=== PATIENT | male | born 1955 | race Caucasian/White ===

== ENCOUNTER 2021-12-25 22:07 | Inpatient (IN) | payer OTHER ==
[~2021-12-25] VITALS: Ht 172.7 cm; Wt 74.8 kg
[~2021-12-25 22:07] MED LIST: DIGOXIN; LOTENSIN; ROBAXIN; VYTORIN
[2021-12-25 22:33] VITALS: BP_SYST 186
[2021-12-26 00:37] LABS: BASOPHILS # (AUTO) 0.1 K/uL (0.0-0.2); BASOPHILS % (AUTO) 0.7 % (0.0-2.0); EOSINOPHILS # (AUTO) 0.2 K/uL (0.0-0.4); EOSINOPHILS % (AUTO) 1.9 % (0.0-4.0); HEMATOCRIT 40.3 % (36-54); HEMOGLOBIN 13.1 g/dL (14.0-18.0); LYMPHOCYTES # (AUTO) 2.5 K/uL (1.0-5.5); LYMPHOCYTES % (AUTO) 20.6 % (20.5-51.5); MEAN CORPUSCULAR HEMOGLOBIN 25 pg (27-31); MEAN CORPUSCULAR HGB CONC 33 % (32-36); MEAN CORPUSCULAR VOLUME 75 fL (79.0-98.0); MONOCYTES # (AUTO) 0.8 K/uL (0.0-1.0); MONOCYTES % (AUTO) 6.6 % (1.7-9.3); NEUTROPHILS # (AUTO) 8.5 K/uL (1.8-7.7); NEUTROPHILS % (AUTO) 70.2 % (40.0-70.0); PLATELET COUNT (AUTO) 183 K/uL (130-430); RED BLOOD CELL COUNT(AUTO) 5.36 MIL/uL (4.2-6.2); RED CELL DISTRIBUTION WIDTH 15.1 % (9.0-15.0); WHITE BLOOD COUNT (AUTO) 12.1 K/uL (4.8-10.8)
[2021-12-26 00:40] LABS: ALANINE AMINOTRANSFERASE 33 U/L (12-78); ASPARTATE AMINOTRANSFERASE 15 U/L (10-37); CALCIUM 9.3 mg/dL (8.4-11.0); CREATININE 1.23 mg/dL (0.55-1.30); GLUCOSE 142 mg/dL (70-99); LIPASE 126 U/L (73-393); TOTAL BILIRUBIN 0.1 mg/dL (0.0-1.0); UREA NITROGEN, BLOOD 22 mg/dL (8-21)
[2021-12-26 00:51] LABS: GFR AFRICAN AMERICAN 76 mL/min (>90)
[2021-12-26 01:59] LABS: ANION GAP 9 (5-15); CHLORIDE 106 mmol/L (98-107); POTASSIUM 4.2 mmol/L (3.5-5.1); SODIUM SERUM 144 mmol/L (136-145)
[2021-12-26] MEDS ORDERED: MORPHINE 4 MG INJ. 4 MG/ML VIAL IVP ONE ×3 (02:45→05:00)
[2021-12-26] MEDS ORDERED: MORPHINE 4 MG INJ. 4 MG/ML VIAL ONE (02:46)
--- NOTE | 2021-12-26 03:06 | NUR ---
Pt C/O RLQ pain Reports diarrhea @home VSS Patient resting comfortably in bed Pt AOX4 Able to make needs known Family @ bedside Will continue to monitor
[2021-12-26] MEDS ORDERED: HYDROmorphone 1 MG/ML INJ. CARTRIDGE IVP ONE ×2 (05:30→09:45)
--- NOTE | 2021-12-26 05:35 | NUR ---
Pt C/O RUQ pain after morphine x3 MD notified with order for Dilaudid 0.5mg admin Noted and carried out
[2021-12-26] MEDS ORDERED: HYDROmorphone 1 MG/ML INJ. CARTRIDGE ONE ×2 (05:36→09:40)
[2021-12-26] MEDS ORDERED: hydrALAZINE HCL 20 MG/ML VIAL IVP ONE (06:45)
[2021-12-26] MEDS ORDERED: ENALAPRILAT DIHYDRATE 1.25 MG/ML VIAL IVP ONE (06:45)
--- NOTE | 2021-12-26 07:03 | NUR ---
Patient grimacing in pain at this time MD pope Pt AOX4 VSS Able to make needs known Will continue to monitor
--- NOTE | 2021-12-26 07:14 | NUR ---
Gave report to Cheryle for continous of care
[2021-12-26] MEDS ORDERED: cefTRIAXone 1 GM IVPB PREMIX 50 ML IV ONE (07:45)
[2021-12-26] MEDS ORDERED: D5/0.45 NS 1,000 ML IV ONE (07:45)
[2021-12-26] MEDS: D5/0.45 NS 1,000 ML IV SCH ×2 (08:21→18:42)
[2021-12-26] MEDS ORDERED: EZET1TAB22 PO (08:30)
[2021-12-26] MEDS ORDERED: SIMV20TA2 PO (08:30)
[2021-12-26] MEDS ORDERED: DIGO250T PO (08:30)
[2021-12-26] MEDS ORDERED: VITD400 PO (08:30)
[2021-12-26] MEDS ORDERED: METF-518 PO (08:30)
[2021-12-26] MEDS ORDERED: BENA40TA89 PO (08:30)
[2021-12-26] MEDS ORDERED: ASPI-1393 PO (08:30)
[2021-12-26] MEDS ORDERED: METO50TA7 PO (08:30)
--- NOTE | 2021-12-26 08:35 | NUR ---
Admit bed requested Patient will be admitted to care of . Admitted to [facility] unit. Diagnosis KIDNEY STONE Inpatient (Yes or No) YES Observation (Yes or No) NO Orientation concerns or request close to nursing station (Yes or No) NO Covid Status NEG On vent or bipap NO Isolation requirements NO Needs a sitter NO From Home (Yes or if No enter name of facility) YES Requires Dialysis (Yes or No) NO Med Rec Completed (Yes of No) YES
--- NOTE | 2021-12-26 08:36 | NUR ---
66yo m with c/o RLQ pain radiating to right flank since last night. pain worsened from 4-9/10, sharp. denies vomiting, denies urinary problems. in ed, aox4. gcs15. pt hypertesive 170/86. not in distress. clear breath sounds. abdomen tender on RLQ. ermd made aware of pt status. pmh: dm, htn, arrythmia, hld
--- NOTE | 2021-12-26 09:52 | NUR ---
REPORT CALLED TO KAN JOSHI.
--- NOTE | 2021-12-26 10:15 | NUR ---
Patient will be admitted to care of DR AARON. Admitted to [facility] unit. Will go to room 113B. Belongings list completed. Complete and up to date summary report printed. SBAR report to be given at bedside with opportunity for questions.
--- NOTE | 2021-12-26 10:23 | NUR ---
CONSULTATION PAGED/CALLED Reason for Consultation: [] KIDNEY STONES Person Who was Notified: [] DAVID Consulting Physician: [] DR Brittani NICOLAS [employer] Supervisor Specialty: [] UROLOGIST Ordering Physician: [] DR AARON
--- NOTE | 2021-12-26 10:30 | NUR ---
CONSULT DR NICOLAS WAS CALLED FOR CONSULT, SPOKE WITH RUSH.
[2021-12-26 10:39] VITALS: BP_SYST 176
[2021-12-26 10:46] VITALS: BP_SYST 176
--- NOTE | 2021-12-26 11:00 | NUR ---
ADMISSION: The patient, NEHEMIAH ASKEW, 66 y/o, M admitted by CRISTIAN NUNEZ DO, was given written information regarding hospital policies, unit procedures and contact persons. CC OF RIGHT FLANK AND GROIN AREA PPAIN. DX OF HYDRONEPHROSIS. MED RECONCILIATION UPDATED. BELONGINGS CHECK AND PLACE AT THE BEDSIDE DRAWER.
[2021-12-26] MEDS: ONDANSETRON HCL 4 MG/2 ML VIAL IVP PRN ×2 (11:03→17:06)
[2021-12-26] MEDS: KETOROLAC TROMETHAMINE 30 MG VIAL IVP PRN ×2 (11:04→17:06)
[2021-12-26] MEDS ORDERED: SIMV40TA2 PO (14:31)
[2021-12-26 15:16] VITALS: BP_SYST 127
--- NOTE | 2021-12-26 17:18 | NUR ---
MD sanchez callback, new order received about the med reconciliation.
[2021-12-26] MEDS ORDERED: COMMUNICATION ORDER XX PRN (17:30)
[2021-12-26] MEDS ORDERED: LORazepam 2 MG/ML VIAL IVP PRN (18:30)
[2021-12-26] MEDS ORDERED: ONDANSETRON HCL 4 MG/2 ML VIAL IVP PRN (18:30)
[2021-12-26] MEDS ORDERED: INSULIN REGULAR, HUMAN 100 UNITS/ML, 10 ML VIAL (humuLIN R) SUBCUT PRN (18:30)
[2021-12-26] MEDS ORDERED: ACETAMINOPHEN 325 MG TABLET PO PRN ×2 (18:30)
--- NOTE | 2021-12-26 19:11 | NUR ---
endorsed care to fabian dover.
[2021-12-26 20:00] VITALS: BP_SYST 136
--- NOTE | 2021-12-26 20:00 | NUR ---
PM ASSESSMENT; -Pt is a/xo4, resting in bed comfortably. Pt denies any chest pain,sob,or any acute distress. IV site of RAC patent, no s/s any infiltration noted. IVF D5 1/2n @ 100ml/hr. Pt is self ambulatory with steady gaits w/o any difficulty noted. All safety measures in place. Call light w/in reach. Educated and instructed pt regarding safety measure, to use call light whenever needs assistance or OOB, pt verbalized understanding. Pt is able to use call light for assistance. Cont to monitor pt.
[2021-12-26] MEDS: DIGOXIN 0.25 MG TABLET PO SCH (22:00)
--- NOTE | 2021-12-26 22:00 | NUR ---
ROUNDS; -Pt awakes, resting in bed comfortably. Pt denies any pain,sob,or any acute distress. Gave all routine meds. Auscultated 1 min of apical heart rate 61 bpm. All safety measures in place. Call light w/in reach. Cont to monitor pt.
[2021-12-26] MEDS: SIMVASTATIN 40 MG TABLET PO SCH (22:01)
[2021-12-26] MEDS: lisinopriL 20 MG TABLET PO SCH (22:01)
[2021-12-26 23:17] LABS: BILIRUBIN,URINE NEGATIVE (NEGATIVE); BLOOD, URINE 3+ (NEGATIVE); COLOR,URINE YELLOW (YELLOW); GLUCOSE,URINE NEGATIVE (NEGATIVE); KETONES,URINE NEGATIVE (NEGATIVE); LEUKOCYTE ESTERASE ,URINE NEGATIVE (NEGATIVE); NITRITE, URINE NEGATIVE (NEGATIVE); PH,URINE 5.5 (5.0-8.0); PROTEIN URINE NEGATIVE (NEGATIVE); UROBILINOGEN,URINE 0.2 (0.2-1.0)
[2021-12-27 00:05] LABS: CLARITY/URINE SLIGHTLY HAZY (CLEAR)
[2021-12-27 00:15] VITALS: BP_SYST 140
[2021-12-27 00:15] LABS: BACTERIA,URINE FEW /HPF (None Seen); RBC,URINE 20-50 /HPF (0-3); WBC,URINE 0-3 /HPF (0-3)
--- NOTE | 2021-12-27 00:15 | NUR ---
ROUNDS; -Pt is asleep. No s/s any pain,sob,or any acute distress noted. All safety measures in place. Call light w/in reach. Cont to monitor pt.
[2021-12-27 00:18] LABS: MUCUS,URINE None Seen /LPF (None Seen)
--- NOTE | 2021-12-27 02:00 | NUR ---
ROUNDS; -Pt is asleep. No s/s any pain,sob,or any acute distress noted. All safety measures in place. Call light w/in reach. Cont to monitor pt.
--- NOTE | 2021-12-27 02:56 | NUR ---
CONSULTATION PAGED/CALLED Reason for Consultation: BLOOD CX G+ COCCI IN CLUSTER Person Who was Notified: JAMIE Consulting Physician: RAS Dining Service Supervisor Specialty: Ordering Physician: SHARON
--- NOTE | 2021-12-27 02:56 | NUR ---
CONSULTATION PAGED/CALLED Reason for Consultation: PYELONEPHRITIS Person Who was Notified: BECKI Consulting Physician: HASMUKH Dandy Tender Specialty: Ordering Physician: GALEN
--- NOTE | 2021-12-27 04:05 | NUR ---
ROUNDS; -Pt is asleep. No s/s any pain,sob,or any acute distress noted. All safety measures in place. Call light w/in reach. Cont to monitor pt.
[2021-12-27] MEDS: D5/0.45 NS 1,000 ML IV SCH ×4 (06:01→21:50)
--- NOTE | 2021-12-27 06:40 | NUR ---
CLOSING NOTES; -Pt is a/xo4, resting in bed comfortably. Pt denies any chest pain,sob,or any acute distress. IV site of RAC patent, no s/s any infiltration noted. IVF D5 1/2n @ 100ml/hr. All safety measures in place. Call light w/in reach. Will endorse to next nurse to cont care.
[2021-12-27 08:00] VITALS: BP_SYST 136
[2021-12-27] MEDS ORDERED: cefTRIAXone 1 GM IVPB PREMIX 50 ML IV SCH (08:00)
--- NOTE | 2021-12-27 08:00 | NUR ---
Report received from KAN Garcia for continuity of care. Patient stable condition.
[2021-12-27] MEDS ORDERED: BENAZEPRIL HCL 20 MG TABLET (LOTENSIN) PO SCH (09:00)
[2021-12-27 09:07] LABS: BASOPHILS # (AUTO) 0.1 K/uL (0.0-0.2); BASOPHILS % (AUTO) 0.7 % (0.0-2.0); EOSINOPHILS # (AUTO) 0.1 K/uL (0.0-0.4); EOSINOPHILS % (AUTO) 1.5 % (0.0-4.0); HEMATOCRIT 34.8 % (36-54); HEMOGLOBIN 11.6 g/dL (14.0-18.0); LYMPHOCYTES # (AUTO) 1.6 K/uL (1.0-5.5); LYMPHOCYTES % (AUTO) 18.9 % (20.5-51.5); MEAN CORPUSCULAR HEMOGLOBIN 25 pg (27-31); MEAN CORPUSCULAR HGB CONC 33 % (32-36); MEAN CORPUSCULAR VOLUME 75 fL (79.0-98.0); MONOCYTES # (AUTO) 0.7 K/uL (0.0-1.0); MONOCYTES % (AUTO) 7.7 % (1.7-9.3); NEUTROPHILS # (AUTO) 6.1 K/uL (1.8-7.7); NEUTROPHILS % (AUTO) 71.2 % (40.0-70.0); PLATELET COUNT (AUTO) 136 K/uL (130-430); RED BLOOD CELL COUNT(AUTO) 4.66 MIL/uL (4.2-6.2); RED CELL DISTRIBUTION WIDTH 15.3 % (9.0-15.0); WHITE BLOOD COUNT (AUTO) 8.5 K/uL (4.8-10.8)
[2021-12-27 09:08] LABS: ALBUMIN 2.9 g/dL (3.4-4.8); CREATININE 1.41 mg/dL (0.55-1.30); PHOSPHORUS 3.6 mg/dL (2.7-4.5); TOTAL BILIRUBIN 0.4 mg/dL (0.0-1.0)
[2021-12-27] MEDS: KETOROLAC TROMETHAMINE 30 MG VIAL IVP PRN ×2 (09:43→16:03)
[2021-12-27] MEDS: CHOLECALCIFEROL (VITAMIN D-3) 400 UNIT TABLET PO SCH (09:48)
[2021-12-27] MEDS: ASPIRIN 81 MG TABLET(ECOTRIN) PO SCH (09:49)
[2021-12-27] MEDS: METOPROLOL SUCCINATE 50 MG TAB.SR.24H (TOPROL XL) PO SCH (09:49)
[2021-12-27 12:00] VITALS: BP_SYST 120
[2021-12-27] MEDS: AMPICILLIN SODIUM/SULBACTAM NA 3 GM in NS 100 ML IV SCH ×2 (13:37→19:58)
[2021-12-27 16:00] VITALS: BP_SYST 134
--- NOTE | 2021-12-27 19:00 | NUR ---
Report given to KAN Mccullough for continuity of care. Patient stable. bedside.
[2021-12-27 19:50] VITALS: BP_SYST 148
[2021-12-27] MEDS: lisinopriL 20 MG TABLET PO SCH (21:48)
[2021-12-27] MEDS: DIGOXIN 0.25 MG TABLET PO SCH (21:48)
[2021-12-27] MEDS: SIMVASTATIN 40 MG TABLET PO SCH (21:49)
[2021-12-28 00:16] VITALS: BP_SYST 144
[2021-12-28] MEDS: AMPICILLIN SODIUM/SULBACTAM NA 3 GM in NS 100 ML IV SCH ×5 (00:16→23:32)
[2021-12-28] MEDS: KETOROLAC TROMETHAMINE 30 MG VIAL IVP PRN ×3 (00:16→21:40)
--- NOTE | 2021-12-28 00:16 | NUR ---
ROUNDS; -Pt is c/o lower abd pain gave Toradol IVP for pain mgmt, gave pain mgmt upon pt's request. All safety measures in place. call light w/in reach. Spouse is at bedside. Cont to monitor pt.
--- NOTE | 2021-12-28 02:35 | NUR ---
ROUNDS; -Pt is asleep. No s/s any pain,sob,or any acute distress noted. All safety measures in place. Call light w/in reach. Cont to monitor pt.
--- NOTE | 2021-12-28 04:36 | NUR ---
ROUNDS; -Pt is asleep. spouse is at bedside. No s/s any pain,sob,or any acute distress noted. All safety measures in place. Call light w/in reach. Cont to monitor pt.
--- NOTE | 2021-12-28 05:46 | NUR ---
BLOOD MQTYJ=[id number],NO SSI COVERAGE
--- NOTE | 2021-12-28 06:20 | NUR ---
CLOSING NOTES; -Pt is resting in bed comfortably. Spouse is at bedside entire shift. Pt denies any chest pain,sob,or any acute distress. IV site of RAC patent, no s/s any infiltration noted. IVF D5 1/2n @ 100ml/hr. All safety measures in place. Call light w/in reach. Pt's condition stable. Will endorse to next nurse to cont care.
[2021-12-28 07:48] LABS: BASOPHILS % (AUTO) 0.7 % (0.0-2.0); EOSINOPHILS # (AUTO) 0.3 K/uL (0.0-0.4); EOSINOPHILS % (AUTO) 4.5 % (0.0-4.0); HEMATOCRIT 33.3 % (36-54); HEMOGLOBIN 11.2 g/dL (14.0-18.0); LYMPHOCYTES # (AUTO) 1.7 K/uL (1.0-5.5); LYMPHOCYTES % (AUTO) 26.2 % (20.5-51.5); MEAN CORPUSCULAR HEMOGLOBIN 25 pg (27-31); MEAN CORPUSCULAR HGB CONC 34 % (32-36); MEAN CORPUSCULAR VOLUME 75 fL (79.0-98.0); MONOCYTES # (AUTO) 0.6 K/uL (0.0-1.0); MONOCYTES % (AUTO) 8.5 % (1.7-9.3); NEUTROPHILS # (AUTO) 3.9 K/uL (1.8-7.7); NEUTROPHILS % (AUTO) 60.1 % (40.0-70.0); PLATELET COUNT (AUTO) 122 K/uL (130-430); RED BLOOD CELL COUNT(AUTO) 4.46 MIL/uL (4.2-6.2); RED CELL DISTRIBUTION WIDTH 14.8 % (9.0-15.0); WHITE BLOOD COUNT (AUTO) 6.5 K/uL (4.8-10.8)
[2021-12-28 08:00] VITALS: BP_SYST 134
[2021-12-28 08:14] LABS: C-REACTIVE PROTEIN QUANT 0.7 mg/dL (0-0.5); CALCIUM 7.9 mg/dL (8.4-11.0); CREATININE 0.97 mg/dL (0.55-1.30); PHOSPHORUS 3.5 mg/dL (2.7-4.5); POTASSIUM 3.8 mmol/L (3.5-5.1)
[2021-12-28] MEDS: ASPIRIN 81 MG TABLET(ECOTRIN) PO SCH (10:10)
[2021-12-28] MEDS: METOPROLOL SUCCINATE 50 MG TAB.SR.24H (TOPROL XL) PO SCH (10:13)
[2021-12-28] MEDS: CHOLECALCIFEROL (VITAMIN D-3) 400 UNIT TABLET PO SCH (10:25)
[2021-12-28 13:54] LABS: ERYTHROCYTE SEDIMENTATION RATE 7 MM/HR (0-15)
[2021-12-28 16:00] VITALS: BP_SYST 124
[2021-12-28 20:15] VITALS: BP_SYST 163
[2021-12-28] MEDS: SIMVASTATIN 40 MG TABLET PO SCH (21:37)
[2021-12-28] MEDS: lisinopriL 20 MG TABLET PO SCH (21:38)
[2021-12-28] MEDS: DIGOXIN 0.25 MG TABLET PO SCH (21:38)
[2021-12-28 22:38] VITALS: BP_SYST 124
[2021-12-29 00:20] VITALS: BP_SYST 149
[2021-12-29] MEDS: AMPICILLIN SODIUM/SULBACTAM NA 3 GM in NS 100 ML IV SCH ×2 (06:08→11:42)
[2021-12-29 07:00] VITALS: BP_SYST 172
--- NOTE | 2021-12-29 07:27 | NUR ---
Closing Patient resting in bed, unlabored breathing on room air. Family at bedside. Voided multiple times. Ambulatory with steady gait to bathroom. Given Toradol PRN for moderate pain. No insulin coverage needed per sliding scale. IV antibiotics administered as ordered. Call light in reach, fall and safety precautions in place.
[2021-12-29 08:00] VITALS: BP_SYST 172
[2021-12-29] MEDS ORDERED: AMOX-423 PO (09:39)
[2021-12-29] MEDS: ASPIRIN 81 MG TABLET(ECOTRIN) PO SCH (09:57)
[2021-12-29] MEDS: CHOLECALCIFEROL (VITAMIN D-3) 400 UNIT TABLET PO SCH (09:57)
[2021-12-29] MEDS: METOPROLOL SUCCINATE 50 MG TAB.SR.24H (TOPROL XL) PO SCH (09:58)
[2021-12-29 12:00] VITALS: BP_SYST 159
[2021-12-29 16:00] VITALS: BP_SYST 159
[2021-12-29 16:26] VITALS: BP_SYST 159
--- NOTE | 2021-12-29 16:46 | NUR ---
PATIENT AOX4, BRP. DENIES ANY PAIN, APPROPRIATE MOOD, NONDISTRESS. DC HOME TODAY. AT BEDSIDE. LEFT AC SL REMOVED-NO BLEEDING NOTED. SENT ALL PERSONAL BELONGINGS WITH PATIENT. ORAL ANTIBIOTIC SENT TO OUTSIDE PHARMACY. DISCHARGE INSTRUCTIONS GIVEN TO PATIENT. PATIENT INSTRUCTED TO F/U WITH PCP WITH 1-5 DAYS OF DC FROM HOSPITAL-PATIENT VERBALIZED UNDERSTANDING. IF HAVE FEVER GREATER THAN 101 AND NOT RELIEVED BY ANTI PYRETIC MEDS, PAIN, CP, PALPITATIONS, SOB--GO TO NEAREST ER/UC OR CALL 911. PATIENT VERBALIZED UNDERSTANDING.
== END 2021-12-29 23:21 | disposition home or self-care (01) | DRG 871 ==
LOC: SED 22:07 → SMU 12-26 07:36
PROVIDERS: ADMIT Preventive Medicine Preventive Medicine/Occupational Environmental Medicine; ATTEND Preventive Medicine Preventive Medicine/Occupational Environmental Medicine
DX: A41.9 Sepsis, unspecified organism (principal); E43 Unspecified severe protein-calorie malnutrition; E87.2 Acidosis; N13.6 Pyonephrosis; N17.9 Acute kidney failure, unspecified; E88.09 Other disorders of plasma-protein metabolism, not elsewhere classified; E11.65 Type 2 diabetes mellitus with hyperglycemia; N40.0 Benign prostatic hyperplasia without lower urinary tract symptoms; I48.91 Unspecified atrial fibrillation; E11.21 Type 2 diabetes mellitus with diabetic nephropathy; N18.9 Chronic kidney disease, unspecified; E11.22 Type 2 diabetes mellitus with diabetic chronic kidney disease; D64.9 Anemia, unspecified; Z20.822 Contact with and (suspected) exposure to COVID-19; E83.52 Hypercalcemia; Z79.82 Long term (current) use of aspirin; Z79.899 Other long term (current) drug therapy; Q63.2 Ectopic kidney; Z68.25 Body mass index [BMI] 25.0-25.9, adult
CPT/HCPCS: 36415; 71045; 76376; 80048; 80053; 81000; 82962; 83605; 83690; 83735; 84100; 84484; 85025; 85651-TC; 86140; 87040; 87086; 93005; 96365; 96375; 96376; 99285; J0295; J0360; J0696; J1170; J1815; J1885; J2270; J2405